=== PATIENT | male | born 1930 | race Caucasian/White ===

== ENCOUNTER → 2017-02-08 | Outpatient (CLI) | payer MEDICARE | END | disposition disaster alternative care site (69) | LOC: GAMB 16:15 | DX: R55 Syncope and collapse (principal); R42 Dizziness and giddiness; R40.20 Unspecified coma; Z79.1 Long term (current) use of non-steroidal anti-inflammatories (NSAID); Z79.899 Other long term (current) drug therapy | CPT/HCPCS: A0422; A0425; A0427 ==